=== PATIENT | female | born 1970 | race Caucasian/White ===

== ENCOUNTER 2017-06-21 10:27 | Emergency (ER) | payer MEDICAID, OTHER ==
--- NOTE | 2017-06-21 10:36 | EDPHY ---
H & P Stated Complaint: epigastric pain - started at 1000. Same symptoms as 2 weeks ago Time Seen by Provider: 06/21/17 10:36 HPI/ROS: CHIEF COMPLAINT: Epigastric pain HISTORY OF PRESENT ILLNESS: The patient presents to the ED with an acute exacerbation of chronic epigastric pain. She has been experiencing symptoms intermittently for years which have been attributed to abdominal migraines. Over the past year her symptoms have worsened. She actually required hospitalization 3 weeks ago. At that time she reports she had a negative CT scan of the abdomen pelvis. She followed up with Gastroenterology and underwent an EGD 2 weeks ago which demonstrated only a hiatal hernia. The patient is reportedly scheduled to undergo a hysterectomy for chronic pelvic pain and dysfunctional uterine bleeding next week. The patient reports that she took Valium and Phenergan last night with some improvement of her symptoms. She developed recurrent symptoms today. She has been told she has a history of a distended gallbladder noted on CT scan. She reports she has not had a right upper quadrant ultrasound performed as part of her workup. The patient denies prior abdominal surgery. She denies additional acute complaints. REVIEW OF SYSTEMS: A comprehensive 10 point review of systems is otherwise negative aside from elements mentioned in the history of present illness. Source: Patient Exam Limitations: No limitations - Personal History LMP (Females 10-55): Irregular Current Tetanus Diphtheria and Acellular Pertussis (TDAP): Yes - Medical/Surgical History Hx Asthma: No Hx Chronic Respiratory Disease: No Hx Diabetes: No Hx Cardiac Disease: No Hx Renal Disease: No Hx Cirrhosis: No Hx Alcoholism: No Hx HIV/AIDS: No Hx Splenectomy or Spleen Trauma: No Other PMH: Denies - Social History Smoking Status: Never smoked - Physical Exam Exam: General Appearance: Alert, no distress Eyes: Pupils equal and round no pallor or injection ENT, Mouth: Mucous membranes moist Respiratory: There are no retractions, lungs are clear to auscultation Cardiovascular: Regular rate and rhythm Gastrointestinal: Epigastric tenderness to palpation, no peritoneal signs, normal bowel sounds Neurological: A&O, normal motor function, normal sensory exam, normal cranial nerves Skin: Warm and dry, no rashes Musculoskeletal: Neck is supple nontender Extremities: symmetrical, full range of motion Constitutional: Initial Vital Signs Temperature (C) 36.4 C 06/21/17 10:28 Heart Rate 86 06/21/17 10:28 Respiratory Rate 18 06/21/17 10:28 Blood Pressure 124/78 H 06/21/17 10:28 O2 Sat (%) 99 06/21/17 10:28 O2 Delivery Mode Room Air Allergies/Adverse Reactions: No Known Allergies Allergy (Verified 08/19/12 19:42) Home Medications: Medication Instructions Recorded Imitrex 08/19/12 Medical Decision Making - Diagnostics Imaging Results: Imaging Impressions Abdomen Ultrasound 06/21/17 10:50 Impression: 1. Contracted gallbladder with echogenic gallbladder sludge. If there is concern for chronic cholecystitis, consider nuclear medicine HIDA scan. If the patient had a recent meal, a repeat study after an 8 hour fast could be performed. 2. Incidental right renal angiomyolipoma. Results called to Dr. Mike Shaw at 12:10 pm ED Course/Re-evaluation: The patient presents to the ED for evaluation of an acute exacerbation of chronic abdominal pain. The patient was noted to have mild right upper quadrant tenderness on exam. She was taken for a right upper quadrant ultrasound which demonstrated no evidence of cholecystitis. The patient's laboratory studies are within normal limits. The patient did receive IV Ativan , normal saline and 4 mg of Zofran. The patient's CBC, serum chemistries, liver function tests and lipase are within normal limits. I re-evaluated the patient at 12:40 p.m.. Her vital signs are stable. Her abdominal examination is reassuring. At this point time I do not feel that a repeat CT scan of the abdomen pelvis is indicated for further evaluation of her chronic intermittent abdominal pain. The patient clinically does not have evidence of an acute surgical abdomen. She is feeling better after receiving IV therapy. She simply may be having an exacerbation of a chronic abdominal migraine. 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 She will be discharged home with customary aftercare instructions and return precautions. Differential Diagnosis: Differential diagnosis considered includes cholecystitis, peptic ulcer disease, abdominal migraine, pancreatitis - Data Points Laboratory Results: Laboratory Results 06/21/17 10:45 06/21/17 10:45 06/21/17 06/21/17 06/21/17 10:45 10:45 10:45 WBC 7.96 10^3/uL 10^3/uL (3.80-9.50) RBC 4.78 10^6/uL 10^6/uL (4.18-5.33) Hgb 14.1 g/dL g/dL (12.6-16.3) Hct 41.1 % % (38.0-47.0) MCV 86.0 fL fL (81.5-99.8) MCH 29.5 pg pg (27.9-34.1) MCHC 34.3 g/dL g/dL (32.4-36.7) RDW 13.5 % % (11.5-15.2) Plt Count 281 10^3/uL 10^3/uL (150-400) MPV 9.7 fL fL (8.7-11.7) Neut % (Auto) 61.8 % % (39.3-74.2) Lymph % (Auto) 22.7 % % (15.0-45.0) Yell % (Auto) 10.7 % % (4.5-13.0) Eos % (Auto) 3.8 % % (0.6-7.6) Baso % (Auto) 0.5 % % (0.3-1.7) Nucleat RBC Rel Count 0.0 % % (0.0-0.2) Absolute Neuts (auto) 4.92 10^3/uL 10^3/uL (1.70-6.50) Absolute Lymphs (auto) 1.81 10^3/uL 10^3/uL (1.00-3.00) Absolute Monos (auto) 0.85 10^3/uL H 10^3/uL (0.30-0.80) Absolute Eos (auto) 0.30 10^3/uL 10^3/uL (0.03-0.40) Absolute Basos (auto) 0.04 10^3/uL 10^3/uL (0.02-0.10) Absolute Nucleated RBC 0.00 10^3/uL 10^3/uL (0-0.01) Immature Gran % 0.5 % % (0.0-1.1) Immature Gran # 0.04 10^3/uL 10^3/uL (0.00-0.10) Sodium 136 mEq/L mEq/L (134-144) Potassium 4.3 mEq/L mEq/L (3.5-5.2) Chloride 103 mEq/L mEq/L (97-110) Carbon Dioxide 22 mEq/l mEq/l (22-31) Anion Gap 11 mEq/L mEq/L (8-16) BUN 10 mg/dL mg/dL (7-23) Creatinine 0.8 mg/dL mg/dL (0.6-1.0) Estimated GFR > 60 Glucose 81 mg/dL mg/dL (70-100) Calcium 10.0 mg/dL mg/dL (8.5-10.4) Total Bilirubin 1.1 mg/dL mg/dL (0.1-1.4) Conjugated Bilirubin 0.5 mg/dL mg/dL (0.0-0.5) Unconjugated Bilirubin 0.6 mg/dL mg/dL (0.0-1.1) AST 63 IU/L H IU/L (14-46) ALT 53 IU/L H IU/L (9-52) Alkaline Phosphatase 53 IU/L IU/L (38-126) Total Protein 7.4 g/dL g/dL (6.3-8.2) Albumin 3.9 g/dL g/dL (3.5-5.0) Lipase 165 IU/L IU/L (23-300) Beta HCG, Qual NEGATIVE Medications Given: Discontinued Medications Lorazepam (Ativan Injection) 1 mg IVP EDNOW ONE Stop: 06/21/17 10:52 Last Admin: 06/21/17 10:56 Dose: 1 mg Departure - Departure Disposition: Home, Routine, Self-Care Condition: Good Instructions: Abdominal Pain (ED) Additional Instructions: Sometimes we are unable to diagnose an obvious cause of abdominal pain in the Emergency Department. Based upon our evaluation today, I believe your symptoms may be secondary to recurrent abdominal migraine. Because more serious conditions can be difficult to diagnose early in the course of their presentation, we ask that you return to the Emergency Department in 8-12 hours for a recheck if you are still having pain. This is necessary to exclude the development of a more serious condition such as appendicitis or other intra- abdominal emergency. In the event your pain markedly increases before that time or you develop intractable vomiting or fever return to the Emergency Department immediately. Referrals: STEPHANIE DASILVA [Primary Care Provider] - As per Instructions
[2017-06-21] MEDS ORDERED: LORazepam 2 MG/ML INJ IVP ONE (10:51)
[2017-06-21 11:00] LABS: % IMMATURE GRANULYOCYTES 0.5 % (0.0-1.1); ABSOLUTE IMMATURE GRANULOCYTES 0.04 10^3/uL (0.00-0.10); ADD DIFF? NO; ADD MORPH? NO; ADD SCAN? NO; ATYPICAL LYMPHOCYTE FLAG 0 (0-99); FRAGMENT RBC FLAG 0 (0-99); HEMATOCRIT 41.1 % (38.0-47.0); HEMOGLOBIN 14.1 g/dL (12.6-16.3); LEFT SHIFT FLG 0 (0-99); LIPEMIA HEMOLYSIS FLAG 90 (0-99); MEAN CELL HEMOGLOBIN 29.5 pg (27.9-34.1); MEAN CELL HEMOGLOBIN CONCENTR. 34.3 g/dL (32.4-36.7); MEAN PLATELET VOLUME 9.7 fL (8.7-11.7); PLATELET CLUMPS FLAG 10 (0-99); PLATELET COUNT 281 10^3/uL (150-400); RED BLOOD CELL COUNT 4.78 10^6/uL (4.18-5.33); RED CELL DISTRIBUTION WIDTH 13.5 % (11.5-15.2)
[2017-06-21 11:13] LABS: ALANINE AMINOTRANSFERASE 53 IU/L (9-52); ALBUMIN 3.9 g/dL (3.5-5.0); ALKALINE PHOSPHATASE 53 IU/L (38-126); ANION GAP 11 mEq/L (8-16); ASPARTATE AMINOTRANSFERASE 63 IU/L (14-46); BILIRUBIN,TOTAL 1.1 mg/dL (0.1-1.4); BILIRUBIN-CONJUGATED 0.5 mg/dL (0.0-0.5); BILIRUBIN-UNCONJUGATED 0.6 mg/dL (0.0-1.1); CARBON DIOXIDE 22 mEq/l (22-31); CHLORIDE 103 mEq/L (97-110); CREATININE 0.8 mg/dL (0.6-1.0); GLOMERULAR FILTRATION RATE > 60; GLUCOSE 81 mg/dL (70-100); POTASSIUM 4.3 mEq/L (3.5-5.2); SODIUM 136 mEq/L (134-144); TOTAL PROTEIN 7.4 g/dL (6.3-8.2)
[2017-06-21 13:33] VITALS: BP 120/67; PULSE 74; RESP 16; TEMP 98.4; O2SAT 95
== END 2017-06-21 13:31 | disposition home or self-care (01) ==
DX: R10.13 Epigastric pain (principal)
CPT/HCPCS: 96374; J2060